=== PATIENT | male | born 1965 | race Hispanic/Latino ===

== ENCOUNTER → 2022-05-18 | Outpatient (CLI) | payer BC | END | disposition home or self-care (01) | LOC: RAH 07:33 | PROVIDERS: ATTEND Nurse Practitioner | DX: M25.811 Other specified joint disorders, right shoulder (principal); M25.711 Osteophyte, right shoulder; M19.011 Primary osteoarthritis, right shoulder | CPT/HCPCS: 73221 ==

== ENCOUNTER 2022-07-21 07:42 | Day surgery (SDC) | payer BC ==
[2022-07-19 08:57] VITALS: BP 173/90
[2022-07-19 09:00] LABS: BASOPHILS % (AUTO) 0.7 % (0.0-5.0); EOSINOPHILS % (AUTO) 2.5 % (0.0-8.0); HEMATOCRIT 46.1 % (42-54); LYMPHOCYTES % (AUTO) 22.8 % (21.0-51.0); MEAN CORPUSCULAR HEMOGLOBIN 27.7 pg (27.0-33.0); MEAN CORPUSCULAR HGB CONC 32.8 g/dL (32.0-36.0); MEAN CORPUSCULAR VOLUME 84.4 fL (79-99); MONOCYTES % (AUTO) 6.3 % (3.0-13.0); NEUTROPHILS % (AUTO) 67.3 % (40.0-77.0); PLATELET COUNT (AUTO) 228 K/uL (130-400); RED BLOOD CELL COUNT(AUTO) 5.46 MIL/uL (4.50-6.20); WHITE BLOOD COUNT (AUTO) 5.5 K/uL (4.8-10.8)
[2022-07-19 09:10] LABS: ALBUMIN 4.1 g/dL (3.5-5.0); CARBON DIOXIDE 31 mmol/L (21-32); CHLORIDE 101 mmol/L (101-111); GLOMERULAR FILTR. RATE CALC 82 mL/min (>60); GLUCOSE,RANDOM 146 mg/dL (70-105); POTASSIUM 4.2 mmol/L (3.5-5.1); SODIUM SERUM 137 mmol/L (136-145); UREA NITROGEN, BLOOD 17 mg/dL (7-18)
[2022-07-19 09:14] LABS: CRP QUANTITATIVE < 2.00 mg/L (0.00-9.0)
[~2022-07-21] VITALS: Ht 180.3 cm; Wt 94.3 kg
[2022-07-21] VITALS (20 sets, daily range): BP systolic 113–152; BP diastolic 57–93
[~2022-07-21 07:42] MED LIST: ATOR40TA71 PO; EMPA25TA PO; GLIM2TAB30 PO; LOSA100T58 PO; METF-446 PO
[2022-07-21] MEDS ORDERED: 0.9%NACL 1000ML 1,000 ML IV ONE (08:57)
[2022-07-21] MEDS: CEFAZOLIN SODIUM 1 GM VIAL IVPB SCH ×2 (09:16→11:42)
[2022-07-21] MEDS ORDERED: EPINEPHRINE PF 1MG (1:1,000) 1 MG/ML AMP ONE (10:04)
[2022-07-21] MEDS ORDERED: SUCCINYLCHOLINE CHLORIDE 20 MG/ML 10 ML VIAL ONE (11:38)
[2022-07-21] MEDS ORDERED: PROPOFOL 10 MG/ML 20ML VIAL IV ONE (11:38)
[2022-07-21] MEDS ORDERED: LIDOCAINE PF 100MG/5ML (2%) SYRINGE 5ML ONE (11:38)
[2022-07-21] MEDS ORDERED: NEOSTIGMINE 5MG/5ML SYR IV ONE (11:39)
[2022-07-21] MEDS ORDERED: MIDAZOLAM HCL 1 MG/ML 2ML VIAL ONE (11:39)
[2022-07-21] MEDS ORDERED: ONDANSETRON 4MG INJ ONE (11:39)
[2022-07-21] MEDS ORDERED: ROCURONIUM 10MG/1ML SYR 10 MG/ML ML ONE (11:39)
[2022-07-21] MEDS ORDERED: FENTANYL CITRATE PF 50 MCG/1 ML 2ML VIAL ONE ×2 (11:39→13:59)
[2022-07-21] MEDS ORDERED: GLYCOPYRROLATE 1 MG/5 ML SYRINGE ONE (11:39)
[2022-07-21] MEDS ORDERED: PHENYLEPHRINE HCL 10 MG/ML 1ML VIAL IV ONE (11:54)
[2022-07-21] MEDS ORDERED: ROPIVACAINE 0.5% 5MG/ML 30ML IJ ONE (12:37)
[2022-07-21] MEDS ORDERED: HYDR-4060 PO (14:48)
[2022-07-21] MEDS ORDERED: HYDROMORPHONE 1 MG INJ ONE (15:16)
== END 2022-07-21 17:31 | disposition home or self-care (01) ==
LOC: DAH 07:42
PROVIDERS: ATTEND Student in an Organized Health Care Education/Training Program
DX: M19.011 Primary osteoarthritis, right shoulder (principal); Z20.822 Contact with and (suspected) exposure to COVID-19; M75.21 Bicipital tendinitis, right shoulder; M75.41 Impingement syndrome of right shoulder; G89.29 Other chronic pain; M77.8 Other enthesopathies, not elsewhere classified; I25.10 Atherosclerotic heart disease of native coronary artery without angina pectoris; E11.9 Type 2 diabetes mellitus without complications; I10 Essential (primary) hypertension; K21.9 Gastro-esophageal reflux disease without esophagitis; G47.00 Insomnia, unspecified; E78.00 Pure hypercholesterolemia, unspecified; Z82.49 Family history of ischemic heart disease and other diseases of the circulatory system; Z79.82 Long term (current) use of aspirin; Z79.84 Long term (current) use of oral hypoglycemic drugs; Z79.899 Other long term (current) drug therapy; Z79.01 Long term (current) use of anticoagulants
CPT/HCPCS: 82040; 80048; 85025; 84134; 86140; 87426; 36415; 29822; 29824; 64415; 29826; 82948 ×3; 93005; A4663; J7030 ×2; A4565; J3010 ×2; J0690; J1170; J3490; J2710; J0330; J2001; J0171; J2250; J2704; J2405; J2795; J2370; A6223; A4215; A4223; A4222; A4221; C1713; A4600